=== PATIENT | male | born 1965 | race Caucasian/White ===

== ENCOUNTER 2016-09-15 13:59 | Emergency (ER) | payer MEDICARE ==
[2016-09-15 15:46] LABS: Hematocrit 41 % (42-52); Hemoglobin 13.9 g/dl (14.0-18.0); Mean Corpuscular HGB Conc 34 g/dl (31-36); Mean Corpuscular Hemoglobin 31 pg (27-31); Mean Corpuscular Volume 92 fL (80-94); Mean Platelet Volume 9 um3 (7.4-10.4); Red Blood Count 4.46 10^6/ul (4.0-5.4); Red Cell Distribution Width 14 % (10.5-15); White Blood Count 12.5 10^3/ul (3.5-10.8)
--- NOTE | 2016-09-15 15:55 | RAD ---
Indication: Chest pain. Single frontal view of the chest performed at 1543 hours was reviewed. Comparison is made with previous exam dated December 09, 2014. No mediastinal shift is noted. Heart is of normal size and configuration. Lung leonard appear clear. IMPRESSION: NO ACTIVE CARDIOPULMONARY DISEASE IS NOTED.
[2016-09-15 16:09] LABS: Albumin 4.1 g/dL (3.2-5.2); BUN/Creatinine Ratio 14.4 (8-20); Calcium 9.8 mg/dL (8.6-10.3); EGFR African American 96.8 (>60); EGFR Non-African American 75.3 (>60); Globulin 3.1 g/dL (2-4); Total Bilirubin 0.6 mg/dL (0.2-1.0); Total Protein 7.2 g/dL (6.4-8.9)
[2016-09-15] MEDS ORDERED: Ondansetron INJ* 2 MG/ML VIAL IV ONE (16:29)
[2016-09-15] MEDS ORDERED: NS 0.9% 1000 ML* 1,000 ML IV ONE ×2 (16:50→19:37)
[2016-09-15 17:19] LABS: Troponin I 0.01 ng/mL (<0.04)
[2016-09-15] MEDS ORDERED: Iodixanol* (CONTRAST) 320 MG/ML 100 ML SDV IV ONE (17:42)
--- NOTE | 2016-09-15 18:44 | RAD ---
Indication: Abdominal pain. CT of the abdomen and pelvis was performed after oral and IV contrast administration. Coronal and sagittal reconstructed images were obtained. Administered 129.0 ml of Contrast -- mgi/ml was given according to hospital protocol. Lung bases demonstrate no pleural fluid, nodules or masses. Heart is of normal size without evidence of pericardial effusion. Liver is normal in size. It is diffusely decreased in density consistent with hepatic steatosis. No focal lesions or intrahepatic ductal dilatation is noted. Spleen is normal in size. Pancreas demonstrates no mass or pancreatic duct dilatation. The common duct is not dilated. Gallbladder demonstrates no calcified gallstones. No pericholecystic fluid or wall thickening is identified. No adrenal masses are noted. The kidneys demonstrate symmetric nephrograms without focal lesions. No retroperitoneal lymphadenopathy is noted. No dilated loops of bowel are noted. CT of the pelvis demonstrates diverticulosis without definite evidence of diverticulitis. Urinary bladder is unremarkable. Small bowel demonstrates no abnormal dilatation. Contrast is noted in the right colon. Moderate-sized hiatal hernia is noted. IMPRESSION: HEPATIC STEATOSIS. DIVERTICULOSIS WITHOUT DEFINITE EVIDENCE OF DIVERTICULITIS. PATIENT STATUS POST RIGHT HIP REPLACEMENT. HIATAL HERNIA OF MODERATE SIZE IS NOTED.
[2016-09-15] MEDS ORDERED: Ciprofloxacin 400MG IVPREMIX(* 400 MG/200 ML BAG IVPB ONE (19:38)
[2016-09-15] MEDS ORDERED: metroNIDAZOLE IV 500 MG/100ML* 500 MG/100 ML BAG IVPB ONE (19:38)
[2016-09-15] MEDS ORDERED: Al Hydrox/Mg Hydrox/Simet LIQ* 30 ML UDC PO ONE (20:05)
[2016-09-15] MEDS ORDERED: Lidocaine 2% VISCOUS* 15 ML UDC PO ONE (20:05)
[2016-09-15 20:36] LABS: C Reactive Protein 26.43 mg/L (< 5.00)
[2016-09-15 22:58] VITALS: BP 145/91
--- NOTE | 2016-09-18 09:31 | ED ---
Skyler Macias Matthew, scribed for Douglas Tubbs MD on 09/15/16 at 1546 . Abdominal Pain/Male - HPI Summary HPI Summary: A 50 y/o male presents to the ED with sudden diffuse abdominal pain since 01:30 this morning. The pain is rated 9/10 in severity and described as burning. Associated symptoms include nausea, vomiting, bilateral flank pain, bilateral back pain. The patient denies diarrhea, blood w/ stool ,fever, recent Abx, and recent travel. The patient is also having chest pain, which he states radiates from his abdomen and shoots into his chest. PMHx inclues COPD, depression, Anxiety, GERD, No ulcers, HTN, and Diabetes. - History of Current Complaint Chief Complaint: EDAbdPain Stated Complaint: VOMITTING/ABD/BACK PAIN Time Seen by Provider: 09/15/16 15:29 Hx Obtained From: Patient Onset/Duration: Sudden Onset, Lasting Hours, Still Present Timing: Constant Severity Initially: Moderate Severity Currently: Moderate Pain Intensity: 9 Pain Scale Used: 0-10 Numeric Location: Diffuse Radiates: No Character: Burning Aggravating Factor(s): Nothing Alleviating Factor(s): Nothing Associated Signs And Symptoms: Positive: Chest Pain - radiates from the abdomen , Back Pain, Nausea, Vomiting. Negative: Fever, Blood in Stool, Diarrhea - Allergies/Home Medications Allergies/Adverse Reactions: Allergies Allergy/AdvReac Type Severity Reaction Status Date / Time Lisinopril Allergy Severe Coughing Verified 09/15/16 14:03 Varenicline [From Chantix] Allergy Severe See Comment Verified 09/15/16 14:03 PMH/Surg Hx/FS Hx/Imm Hx Endocrine/Hematology History: Reports: Hx Diabetes Denies: Hx Anticoagulant Therapy, Hx Bone Marrow Disease, Hx Sickle Cell Disease, Hx Anemia, Other Endocrine/Hematological Disorders Cardiovascular History: Reports: Hx Angina - last had in 1996, Hx Hypertension - MEDICATED Denies: Hx Pacemaker/ICD, Other Cardiovascular Problems/Disorders Respiratory History: Reports: Hx Chronic Bronchitis, Hx Chronic Obstructive Pulmonary Disease (COPD) Denies: Hx Asthma, Other Respiratory Problems/Disorders GI History: Reports: Hx Gastroesophageal Reflux Disease, Hx Ulcer - Hx. for 33 years Denies: Other GI Disorders History: Denies: Hx Renal Disease, Other Problems/Disorders Musculoskeletal History: Reports: Hx Arthritis - several places on body with cold weather Denies: Other Musculoskeletal History Sensory History: Reports: Hx Contacts or Glasses Denies: Hx Hearing Aid, Other Sensory Impairments Opthamlomology History: Reports: Hx Contacts or Glasses Denies: Other Sensory Impairments Neurological History: Reports: Hx Headaches - history of sinus colds Denies: Other Neuro Impairments/Disorders Psychiatric History: Reports: Hx Anxiety - since 35 years ago, Hx Depression - since 35 years ago, Hx Panic Disorder, Hx Suicide Attempt - when 17 years olf Denies: Hx Schizophrenia, Hx of Violent Episodes Against Others, Hx Substance Abuse, Other Psychiatric Issues/Disorders - Surgical History Surgery Procedure, Year, and Place: Right shoulder rotator cuff 2007;. Right hip replaced 12/2014;. HEART CATHS (NO STENTS); Hx Anesthesia Reactions: No Infectious Disease History: No Infectious Disease History: Reports: Hx Tuberculosis - DX CARRIER 1994, RX TAKEN Denies: Traveled Outside the [place] in Last 30 Days - Family History Family History: No FHx of malignant hyperthermia. No FHx of anesthesia reaction - Social History Alcohol Use: Weekly Alcohol Amount: 1x week Substance Use Type: Reports: None Smoking Status (MU): Heavy Every Day Tobacco Smoker Type: Cigarettes Amount Used/How Often: 1/2 PPD Length of Time of Smoking/Using Tobacco: 36 YRS Have You Smoked in the Last Year: Yes Review of Systems Constitutional: Negative Eyes: Negative ENT: Negative Positive: Chest Pain Respiratory: Negative Positive: Abdominal Pain - Diffuse , Vomiting, Nausea. Negative: Diarrhea Genitourinary: Negative Positive: Myalgia - bilateral back and flank pain Skin: Negative Neurological: Negative Psychological: Normal All Other Systems Reviewed And Are Negative: Yes Physical Exam - Summary Physical Exam Summary: GENERAL: Awake, alert, oriented, no acute distress, very pleasant HEENT: Head is normocephalic, atraumatic, anicteric sclera, pink conjunctiva, mucous membranes moist, no erythema, no discharge, no lesions, neck is supple, trachea is midline, no JVD CARDIAC: Regular rate and rhythm, S1, S2, no rub, no murmur, no gallop, 2+ radial and pedal pulses bilaterally RESPIRATORY: Clear to auscultation bilaterally with no rales, rhonchi, or wheezes, non-tender ABDOMEN: Bowel sounds positive, no bruit, soft, LLQ tenderness, negative Psoas sign, 2+ femoral pulses, no CVA tenderness EXTREMITIES: No edema, warm, dry, moving all extremities in a grossly normal manner NEUROLOGICAL: Mood is appropriate, moving all extremities in a grossly normal manner Triage Information Reviewed: Yes Vital Signs On Initial Exam: Initial Vitals Temp Pulse Resp BP Pulse Ox 97.8 F 76 16 159/107 98 09/15/16 14:01 09/15/16 14:01 09/15/16 14:01 09/15/16 14:01 09/15/16 14:01 Vital Signs Reviewed: Yes Diagnostics - Vital Signs Vital Signs Temp Pulse Resp BP Pulse Ox 09/15/16 14:01 97.8 F 76 16 159/107 98 - Laboratory Lab Results: Lab Results 09/15/16 09/15/16 09/15/16 Range/Units 15:35 15:35 15:35 WBC 12.5 H (3.5-10.8) 10^3/ul RBC 4.46 (4.0-5.4) 10^6/ul Hgb 13.9 L (14.0-18.0) g/dl Hct 41 L (42-52) % MCV 92 (80-94) fL MCH 31 (27-31) pg MCHC 34 (31-36) g/dl RDW 14 (10.5-15) % Plt Count 178 (150-450) 10^3/ul MPV 9 (7.4-10.4) um3 Neut % (Auto) 75.1 (38-83) % Lymph % (Auto) 13.8 L (25-47) % [place] % (Auto) 8.9 (1-9) % Eos % (Auto) 0.9 (0-6) % Baso % (Auto) 1.3 (0-2) % Absolute Neuts (auto) 9.4 H (1.5-7.7) 10^3/ul Absolute Lymphs (auto) 1.7 (1.0-4.8) 10^3/ul Absolute Monos (auto) 1.1 H (0-0.8) 10^3/ul Absolute Eos (auto) 0.1 (0-0.6) 10^3/ul Absolute Basos (auto) 0.2 (0-0.2) 10^3/ul Absolute Nucleated RBC 0 10^3/ul Nucleated RBC % 0 INR (Anticoag Therapy) 1.01 (0.89-1.11) APTT 28.4 (26.0-36.3) seconds Sodium 130 L (133-145) mmol/L Potassium 4.0 (3.5-5.0) mmol/L Chloride 98 L (101-111) mmol/L Carbon Dioxide 24 (22-32) mmol/L Anion Gap 8 (2-11) mmol/L BUN 15 (6-24) mg/dL Creatinine 1.04 (0.67-1.17) mg/dL Est GFR ( Amer) 96.8 (>60) Est GFR (Non-Af Amer) 75.3 (>60) BUN/Creatinine Ratio 14.4 (8-20) Glucose 127 H (70-100) mg/dL Lactic Acid (0.5-2.0) mmol/L Calcium 9.8 (8.6-10.3) mg/dL Total Bilirubin 0.60 (0.2-1.0) mg/dL AST 16 (13-39) U/L ALT 26 (7-52) U/L Alkaline Phosphatase 55 (34-104) U/L Total Creatine Kinase 57 (10-223) U/L CK-MB (CK-2) 1.0 (0.6-6.3) ng/mL Myoglobin 17.2 L (17.4-105.7) ng/mL Troponin I 0.01 (<0.04) ng/mL C-Reactive Protein 26.43 H (< 5.00) mg/L B-Natriuretic Peptide ( - 100) pg/mL Total Protein 7.2 (6.4-8.9) g/dL Albumin 4.1 (3.2-5.2) g/dL Globulin 3.1 (2-4) g/dL Albumin/Globulin Ratio 1.3 (1-3) Lipase 22 (11.0-82.0) U/L 09/15/16 09/15/16 Range/Units 15:35 15:35 WBC (3.5-10.8) 10^3/ul RBC (4.0-5.4) 10^6/ul Hgb (14.0-18.0) g/dl Hct (42-52) % MCV (80-94) fL MCH (27-31) pg MCHC (31-36) g/dl RDW (10.5-15) % Plt Count (150-450) 10^3/ul MPV (7.4-10.4) um3 Neut % (Auto) (38-83) % Lymph % (Auto) (25-47) % [place] % (Auto) (1-9) % Eos % (Auto) (0-6) % Baso % (Auto) (0-2) % Absolute Neuts (auto) (1.5-7.7) 10^3/ul Absolute Lymphs (auto) (1.0-4.8) 10^3/ul Absolute Monos (auto) (0-0.8) 10^3/ul Absolute Eos (auto) (0-0.6) 10^3/ul Absolute Basos (auto) (0-0.2) 10^3/ul Absolute Nucleated RBC 10^3/ul Nucleated RBC % INR (Anticoag Therapy) (0.89-1.11) APTT (26.0-36.3) seconds Sodium (133-145) mmol/L Potassium (3.5-5.0) mmol/L Chloride (101-111) mmol/L Carbon Dioxide (22-32) mmol/L Anion Gap (2-11) mmol/L BUN (6-24) mg/dL Creatinine (0.67-1.17) mg/dL Est GFR ( Amer) (>60) Est GFR (Non-Af Amer) (>60) BUN/Creatinine Ratio (8-20) Glucose (70-100) mg/dL Lactic Acid 1.4 (0.5-2.0) mmol/L Calcium (8.6-10.3) mg/dL Total Bilirubin (0.2-1.0) mg/dL AST (13-39) U/L ALT (7-52) U/L Alkaline Phosphatase (34-104) U/L Total Creatine Kinase (10-223) U/L CK-MB (CK-2) (0.6-6.3) ng/mL Myoglobin (17.4-105.7) ng/mL Troponin I (<0.04) ng/mL C-Reactive Protein (< 5.00) mg/L B-Natriuretic Peptide 64 ( - 100) pg/mL Total Protein (6.4-8.9) g/dL Albumin (3.2-5.2) g/dL Globulin (2-4) g/dL Albumin/Globulin Ratio (1-3) Lipase (11.0-82.0) U/L Result Diagrams: 09/15/16 15:35 09/15/16 15:35 Lab Statement: Any lab studies that have been ordered have been reviewed, and results considered in the medical decision making process. - Radiology CXR Xray Interpretation: No Acute Changes - IMPRESSION: NO ACTIVE CARDIOPULMONARY DISEASE IS NOTED. Radiology Interpretation Completed By: Radiologist - CT A/P CT Interpretation: Positive (See Comments) - IMPRESSION: HEPATIC STEATOSIS. DIVERTICULOSIS WITHOUT DEFINITE EVIDENCE OF DIVERTICULITIS. PATIENT STATUS POST RIGHT HIP REPLACEMENT. HIATAL HERNIA OF MODERATE SIZE IS NOTED. - EKG 14:05 Cardiac Rate: NL - 67 bpm EKG Rhythm: Sinus Rhythm EKG Interpretation: T Wave Inversion Diffuse EKG Comparison: No Significant Change - 12/04/2012 Abdominal Pain Fem Course/Dx - Diagnoses Provider Diagnoses: abdominal pain, clinical diverticulitis Discharge - Discharge Plan Condition: Stable Disposition: HOME Prescriptions: Ciprofloxacin TAB* [Cipro Tab*] 500 mg PO BID #20 tab Metronidazole [Flagyl 500 MG TAB] 500 mg PO TID #30 tab Ondansetron ODT TAB* [Zofran Odt TAB*] 4 mg PO Q8H PRN #10 tab.odt PRN Reason: Nausea oxyCODONE/Acetamin 5/325 MG* [Percocet 5/325 TAB*] 1 tab PO Q4H PRN #15 tab MDD 4 PRN Reason: Pain Patient Education Materials: Diverticulitis (ED), Clear Liquid Diet (ED) Referrals: Kayli Guzman MD [Primary Care Provider] - 2 Days Douglas Sams MD [Medical Doctor] - Additional Instructions: Please follow-up with your primary care physician and Dr. Sams in two days. Please follow a clear liquid diet for the next two days. DIVERTICULITIS What is diverticulitis? Diverticulitis is a disorder that can cause belly pain , fever, and problems with bowel movements. The food we eat travels from the stomach through a long tube called the intestine. The last part of that tube is the colon (figure 1). The colon sometimes has small pouches in its cooper. These pouches are called "diverticula. " Many people who have these pouches have no symptoms. Diverticulitis happens when these pouches develop a small tear also known as a "microperforation," which then become infected and cause symptoms. What are the symptoms of diverticulitis? The most common symptom of diverticulitis is pain, which is usually in the lower part of the belly. Other symptoms can include: Fever Constipation Diarrhea Nausea and vomiting Is there a test for diverticulitis? Yes. There are a few tests your doctor or nurse can do to find out if you have diverticulitis. But tests are not always needed. Your doctor or nurse might be able to diagnose you without them. If you do have a test, you might have a: CT scan A CT scan is a kind of imaging test. Imaging tests create pictures of the inside of your body. Abdominal ultrasound This test uses sound waves to create pictures of your intestines. How is diverticulitis treated? That depends on how bad your symptoms are. If you have mild symptoms, your doctor or nurse will put you on antibiotics and might put you on a clear liquid diet for a short time. That might be all the treatment you need. But if you have severe symptoms, or if you get a fever, you might need to stay in the hospital. There, you can get fluids and antibiotics through a thin tube that goes into your vein, called an "IV." That way you can stop eating and drinking until you get better. If you have a serious infection, the doctor might put a tube into your belly to drain the infection. In very bad cases, people need surgery to remove the part of the colon that is affected. A few months after your infection has been treated, your doctor might recommend that you have a procedure called a colonoscopy (figure 2). During a colonoscopy , the doctor can look directly inside your colon to get an idea of the number of diverticula in your colon and to find out where they are. At the same time, he or she can check signs of cancer. Should I change my diet if I have had diverticulitis? If you have had diverticulitis, it's a good idea to eat a lot of fiber. Good sources of fiber include fruits, oats, beans, peas, and green leafy vegetables. If you do not already eat fiber-rich foods, wait until after your symptoms get better to start. You do not need to avoid seeds, nuts, popcorn, or other similar foods. The documentation as recorded by the Skyler benson Matthew accurately reflects the service I personally performed and the decisions made by me, Douglas Tubbs MD.
== END 2016-09-15 23:03 | disposition home or self-care (01) ==
LOC: ED 13:59
DX: K57.92 Diverticulitis of intestine, part unspecified, without perforation or abscess without bleeding (principal); R10.9 Unspecified abdominal pain; R11.2 Nausea with vomiting, unspecified
CPT/HCPCS: 36415; 71010; 74177; 80053; 82550; 82553; 83605; 83690; 83874; 83880; 84484; 85025; 85610; 85730; 86140; 93005; 96374; 99284; A9270-GY; J0744; J2405; J3490; Q9967

== ENCOUNTER 2017-09-18 15:09 | Emergency (ER) | payer MEDICARE ==
--- NOTE | 2017-09-18 17:02 | RAD ---
INDICATION: Near syncope COMPARISON: Chest x-ray dated September 15, 2016 TECHNIQUE: PA and lateral views of the chest were obtained. FINDINGS: The heart and mediastinum are normal in size and contour. The lungs are grossly clear. There is no evidence of large pleural effusion. Visualized bones are normal for the patient's age. There is no radiographic evidence of free air beneath the diaphragm IMPRESSION: No radiographic evidence of acute cardiopulmonary disease.
[2017-09-18 17:14] LABS: ABS Basophils 0.1 10^3/ul (0-0.2); ABS Eosinophils 0.1 10^3/ul (0-0.6); ABS Lymphocytes 1.4 10^3/ul (1.0-4.8); ABS Neutrophils 12.2 10^3/ul (1.5-7.7); ABS Nucleated RBC 0 10^3/ul; Hematocrit 41 % (42-52); Hemoglobin 13.7 g/dl (14.0-18.0); Lymphocyte % 9.4 % (25-47); Mean Corpuscular HGB Conc 34 g/dl (31-36); Mean Corpuscular Hemoglobin 32 pg (27-31); Mean Corpuscular Volume 95 fL (80-94); Mean Platelet Volume 9 um3 (7.4-10.4); Nucleated Red Blood Cells % 0; Platelet Count 180 10^3/ul (150-450); Red Blood Count 4.28 10^6/ul (4.0-5.4); Red Cell Distribution Width 14 % (10.5-15); White Blood Count 14.8 10^3/ul (3.5-10.8)
[2017-09-18 17:36] LABS: EGFR Non-African American 71.8 (>60)
[2017-09-18 18:23] LABS: Urine Appearance Clear; Urine Blood Negative (Negative); Urine Color Yellow; Urine Ketones Trace (Negative); Urine Protein Negative (Negative); Urine Specific Gravity 1.017 (1.010-1.030); Urine Urobilinogen Negative (Negative)
[2017-09-18] MEDS ORDERED: NS 0.9% 1000 ML* 1,000 ML IV ONE (18:33)
[2017-09-18 21:56] VITALS: BP 136/83
--- NOTE | 2017-09-19 11:43 | ED ---
Yasir Macias Thomas, scribed for Monroe Reyes MD on 09/18/17 at 1624 . Syncope/Near Syncope - HPI Summary HPI Summary: The patient is a 51 year old male who felt weak and almost fainted at [facility]. The patient was walking to the bathroom when he became sweaty, cold, lightheaded , and felt like he was going to pass out. He began vomiting after sitting down and has experienced diarrhea. This has been occurring a couple times per week for a few weeks. He has one replaced hip and a problem with the other hip and lower back. The patient is disabled and has a history of diabetes, hypertension , and an unspecified cardiac disease. He denies problems with eating or drinking. - History Of Current Complaint Chief Complaint: EDGeneral Time Seen by Provider: 09/18/17 15:38 Hx Obtained From: Patient Onset/Duration: Gradual Onset, Still Present Timing: Intermittent Episode Lasting - This has been occurring a couple times per week for a few weeks Context: Witnessed Associated Head Trauma: No Aggravating Factor(s): Nothing Alleviating Factor(s): Nothing Associated Signs And Symptoms: Diarrhea, Lightheadedness, Vomiting, Weakness - Allergies/Home Medications Allergies/Adverse Reactions: Allergies Allergy/AdvReac Type Severity Reaction Status Date / Time Lisinopril Allergy Severe Coughing Verified 09/18/17 15:19 Varenicline [From Chantix] Allergy Severe See Comment Verified 09/18/17 15:19 PMH/Surg Hx/FS Hx/Imm Hx Previously Healthy: No Endocrine/Hematology History: Reports: Hx Diabetes Denies: Hx Anticoagulant Therapy, Hx Bone Marrow Disease, Hx Sickle Cell Disease, Hx Anemia, Other Endocrine/Hematological Disorders Cardiovascular History: Reports: Hx Angina - last had in 1996, Hx Hypertension - MEDICATED Denies: Hx Pacemaker/ICD, Other Cardiovascular Problems/Disorders Respiratory History: Reports: Hx Chronic Bronchitis, Hx Chronic Obstructive Pulmonary Disease (COPD) Denies: Hx Asthma, Other Respiratory Problems/Disorders GI History: Reports: Hx Gastroesophageal Reflux Disease, Hx Ulcer - Hx. for 33 years Denies: Other GI Disorders History: Denies: Hx Renal Disease, Other Problems/Disorders Musculoskeletal History: Reports: Hx Arthritis - several places on body with cold weather Denies: Other Musculoskeletal History Sensory History: Reports: Hx Contacts or Glasses Denies: Hx Hearing Aid, Other Sensory Impairments Opthamlomology History: Reports: Hx Contacts or Glasses Denies: Other Sensory Impairments Neurological History: Reports: Hx Headaches - history of sinus colds Denies: Other Neuro Impairments/Disorders Psychiatric History: Reports: Hx Anxiety - since 35 years ago, Hx Depression - since 35 years ago, Hx Panic Disorder, Hx Suicide Attempt - when 17 years olf Denies: Hx Schizophrenia, Hx of Violent Episodes Against Others, Hx Substance Abuse, Other Psychiatric Issues/Disorders - Surgical History Surgery Procedure, Year, and Place: Right shoulder rotator cuff 2007;. Right hip replaced 12/2014;. HEART CATHS (NO STENTS); Hx Anesthesia Reactions: No Infectious Disease History: No Infectious Disease History: Reports: Hx Tuberculosis - DX [facility]RIER 1994, RX TAKEN Denies: Traveled Outside the [place] in Last 30 Days - Family History Known Family History: Positive: Other - No FHx of malignant hyperthermia - Social History Alcohol Use: Weekly Alcohol Amount: 1x week Substance Use Type: Reports: None Smoking Status (MU): Heavy Every Day Tobacco Smoker Type: Cigarettes Amount Used/How Often: 1/2 PPD Length of Time of Smoking/Using Tobacco: 36 YRS Have You Smoked in the Last Year: Yes Review of Systems Constitutional: Other - Sweaty, cold Positive: Vomiting, Diarrhea Positive: Weakness, Syncope - near All Other Systems Reviewed And Are Negative: Yes Physical Exam - Summary Physical Exam Summary: Appearance: The patient is well-nourished in no acute distress and in no acute pain. Skin: The skin is warm and dry and skin color reflects adequate perfusion. HEENT: The head is normocephalic and atraumatic. The pupils are equal and reactive. The conjunctivae are clear and without drainage. Nares are patent and without drainage. Mouth reveals moist mucous membranes and the throat is without erythema and exudate. The external ears are intact. The ear canals are patent and without drainage. The tympanic membranes are intact. Neck: the neck is supple with full range of motion and non-tender. There are no carotid bruits. There is no neck vein distension. Respiratory: Chest is non-tender. Lungs are clear to auscultation and breath sounds are symmetrical and equal. Cardiovascular: Heart is regular rate and rhythm. There is no murmur or rub auscultated. There is no peripheral edema and pulses are symmetrical and equal. Abdomen: The abdomen is soft and non-tender. There are normal bowel sounds heard in all four quadrants and there is no organomegaly palpated. Musculoskeletal: There is no back tenderness noted. Extremities are non-tender with full range of motion. There is good capillary refill. There is no peripheral edema or calf tenderness elicited. Neurological: Patient is alert and oriented to person, place and time. The patient has symmetrical motor strength in all four extremities. Cranial nerves are grossly intact. Deep tendon reflexes are symmetrical and equal in all four extremities. Psychiatric: The patient has an appropriate affect and does not exhibit any anxiety or depression. Triage Information Reviewed: Yes Vital Signs On Initial Exam: Initial Vitals Temp Pulse Resp BP Pulse Ox 98.0 F 67 20 125/79 96 09/18/17 15:13 09/18/17 15:13 09/18/17 15:13 09/18/17 15:13 09/18/17 15:13 Vital Signs Reviewed: Yes - Sergio Coma Scale Coma Scale Total: 15 Diagnostics - Vital Signs Vital Signs Temp Pulse Resp BP Pulse Ox 09/18/17 16:00 70 18 108/79 93 09/18/17 15:30 68 22 105/70 92 09/18/17 15:18 70 95 09/18/17 15:17 125/79 09/18/17 15:13 98.0 F 67 20 125/79 96 - Laboratory Lab Results: Lab Results 09/18/17 09/18/17 09/18/17 Range/Units 16:45 16:45 16:45 WBC 14.8 H (3.5-10.8) 10^3/ul RBC 4.28 (4.0-5.4) 10^6/ul Hgb 13.7 L (14.0-18.0) g/dl Hct 41 L (42-52) % MCV 95 H (80-94) fL MCH 32 H (27-31) pg MCHC 34 (31-36) g/dl RDW 14 (10.5-15) % Plt Count 180 (150-450) 10^3/ul MPV 9 (7.4-10.4) um3 Neut % (Auto) 82.3 (38-83) % Lymph % (Auto) 9.4 L (25-47) % Lee % (Auto) 6.6 (1-9) % Eos % (Auto) 1.0 (0-6) % Baso % (Auto) 0.7 (0-2) % Absolute Neuts (auto) 12.2 H (1.5-7.7) 10^3/ul Absolute Lymphs (auto) 1.4 (1.0-4.8) 10^3/ul Absolute Monos (auto) 1.0 H (0-0.8) 10^3/ul Absolute Eos (auto) 0.1 (0-0.6) 10^3/ul Absolute Basos (auto) 0.1 (0-0.2) 10^3/ul Absolute Nucleated RBC 0 10^3/ul Nucleated RBC % 0 Sodium 137 (133-145) mmol/L Potassium 3.6 (3.5-5.0) mmol/L Chloride 103 (101-111) mmol/L Carbon Dioxide 27 (22-32) mmol/L Anion Gap 7 (2-11) mmol/L BUN 22 (6-24) mg/dL Creatinine 1.08 (0.67-1.17) mg/dL Est GFR ( Amer) 92.3 (>60) Est GFR (Non-Af Amer) 71.8 (>60) BUN/Creatinine Ratio 20.4 H (8-20) Glucose 117 H (70-100) mg/dL Lactic Acid 1.4 (0.5-2.0) mmol/L Calcium 9.7 (8.6-10.3) mg/dL Magnesium 1.3 L (1.9-2.7) mg/dL Total Bilirubin 0.50 (0.2-1.0) mg/dL AST 20 (13-39) U/L ALT 30 (7-52) U/L Alkaline Phosphatase 49 (34-104) U/L Troponin I 0.03 (<0.04) ng/mL Total Protein 6.8 (6.4-8.9) g/dL Albumin 3.8 (3.2-5.2) g/dL Globulin 3.0 (2-4) g/dL Albumin/Globulin Ratio 1.3 (1-3) TSH 3.71 (0.34-5.60) mcIU/mL Urine Color Urine Appearance Urine pH (5-9) Ur Specific [place] (1.010-1.030) Urine Protein (Negative) Urine Ketones (Negative) Urine Blood (Negative) Urine Nitrate (Negative) Urine Bilirubin (Negative) Urine Urobilinogen (Negative) Ur Leukocyte Esterase (Negative) Urine Glucose (Negative) 09/18/17 09/18/17 Range/Units 18:15 19:39 WBC (3.5-10.8) 10^3/ul RBC (4.0-5.4) 10^6/ul Hgb (14.0-18.0) g/dl Hct (42-52) % MCV (80-94) fL MCH (27-31) pg MCHC (31-36) g/dl RDW (10.5-15) % Plt Count (150-450) 10^3/ul MPV (7.4-10.4) um3 Neut % (Auto) (38-83) % Lymph % (Auto) (25-47) % Lee % (Auto) (1-9) % Eos % (Auto) (0-6) % Baso % (Auto) (0-2) % Absolute Neuts (auto) (1.5-7.7) 10^3/ul Absolute Lymphs (auto) (1.0-4.8) 10^3/ul Absolute Monos (auto) (0-0.8) 10^3/ul Absolute Eos (auto) (0-0.6) 10^3/ul Absolute Basos (auto) (0-0.2) 10^3/ul Absolute Nucleated RBC 10^3/ul Nucleated RBC % Sodium (133-145) mmol/L Potassium (3.5-5.0) mmol/L Chloride (101-111) mmol/L Carbon Dioxide (22-32) mmol/L Anion Gap (2-11) mmol/L BUN (6-24) mg/dL Creatinine (0.67-1.17) mg/dL Est GFR ( Amer) (>60) Est GFR (Non-Af Amer) (>60) BUN/Creatinine Ratio (8-20) Glucose (70-100) mg/dL Lactic Acid (0.5-2.0) mmol/L Calcium (8.6-10.3) mg/dL Magnesium (1.9-2.7) mg/dL Total Bilirubin (0.2-1.0) mg/dL AST (13-39) U/L ALT (7-52) U/L Alkaline Phosphatase (34-104) U/L Troponin I 0.01 (<0.04) ng/mL Total Protein (6.4-8.9) g/dL Albumin (3.2-5.2) g/dL Globulin (2-4) g/dL Albumin/Globulin Ratio (1-3) TSH (0.34-5.60) mcIU/mL Urine Color Yellow Urine Appearance Clear Urine pH 5.0 (5-9) Ur Specific [place] 1.017 (1.010-1.030) Urine Protein Negative (Negative) Urine Ketones Trace H (Negative) Urine Blood Negative (Negative) Urine Nitrate Negative (Negative) Urine Bilirubin Negative (Negative) Urine Urobilinogen Negative (Negative) Ur Leukocyte Esterase Negative (Negative) Urine Glucose Negative (Negative) Result Diagrams: 09/18/17 16:45 09/18/17 16:45 Lab Statement: Any lab studies that have been ordered have been reviewed, and results considered in the medical decision making process. - Radiology CXR Xray Interpretation: No Acute Changes - No radiographic evidence of acute cardiopulmonary disease. Dr. Reyes has reviewed this report. Radiology Interpretation Completed By: Radiologist - EKG 15:12 Cardiac Rate: NL EKG Rhythm: Sinus Rhythm - 66 BPM EKG Interpretation: PVCs. Nonspecific Diffuse T-wave changes consistent with EKG on 09/15/16. Course/Dx Course Of Treatment: Mr. Bhatia reported a near syncopal episode while in a store today. He has had these before but more recently. His W/U including two troponins was negative and he was kept on the monitor without ectopy. He was rehydrated with IV NS and felt better. - Diagnoses Provider Diagnoses: Dehydration, Near syncope Discharge - Discharge Plan Condition: Stable Disposition: HOME Patient Education Materials: Dehydration (ED), Near Syncope (ED) Referrals: Kayli Guzman MD [Primary Care Provider] - 3 Days Additional Instructions: Follow up with your primary care provider in three days. Return to the emergency department for any new or worsening symptoms. The documentation as recorded by the Yasir benson Thomas accurately reflects the service I personally performed and the decisions made by , Monroe Reyes MD.
== END 2017-09-18 21:52 | disposition home or self-care (01) ==
LOC: ED 15:09
DX: E86.0 Dehydration (principal); R55 Syncope and collapse; F17.210 Nicotine dependence, cigarettes, uncomplicated; Z88.8 Allergy status to other drugs, medicaments and biological substances
CPT/HCPCS: 36415; 71046; 80053; 81003; 83605; 83735; 84443; 84484; 85025; 93005; 96360; 99284